=== PATIENT | male | born 1940 | race Caucasian/White ===

== ENCOUNTER 2016-12-25 14:11 | Emergency (ER) | payer MEDICARE, OTHER ==
[~2016-12-25 14:11] MED LIST: ASPIRIN81 M1 PO; BACTRIM DS TAB1 EAC2 PO; CIPRO500 M2 PO; FLOMAX0.4 M1 PO; LIPITOR40 M1 PO; MUCINEX600 M1 PO; Multivitamin; N ACETYL PO; NORCO 5-325 TA1 EACH PO; OFEV150 MG PO; OXYCODONE/APAP PO; OXYGEN; PEPCID AC20 MG PO; SINGULAIR10 M1 PO; SLEEP AID PO; STIOLTO RESPIMAT4 GM INH; Vitamin D-3; WAL-ZYR10 M1 PO; ZOFRAN4 M2 PO; [UNRECOGNIZED DRUG - OTHER] PO
[2016-12-25 16:59] LABS: URINE BILIRUBIN NEGATIVE (NEG); URINE BLOOD LARGE (NEG); URINE GLUCOSE (UA) NEGATIVE (NEG); URINE KETONE MODERATE (NEG); URINE LEUKOCYTE ESTERASE NEGATIVE (NEG); URINE NITRITE NEGATIVE (NEG); URINE PROTEIN MODERATE (NEG)
[2016-12-25 17:01] LABS: BASO % 0.3 % (0-2); EOS % 0.9 % (0-7); EOSINOPHIL ABSOLUTE COUNT 0.1 tho/cmm (0.0-0.7); HCT-HEMATOCRIT 39.3 % (36.0-53.5); HGB-HEMOGLOBIN 13.4 gm/dl (13.5-17.0); IMMATURE GRANULOCYTES ABSOLUTE 0.01 tho/cmm (0-0.03); IMMATURE GRANULOCYTES PERCENT 0.1 % (0-0.3); LYMPH % 9.8 % (20-45); LYMPH ABSOLUTE COUNT 0.7 tho/cmm (0.8-4.5); MCH (MEAN CORPUSCULAR HGB) 33.1 pg (28.0-32.0); MCHC MEAN CORPUSCULAR HGB CONC 34.1 % (32.0-36.0); MEAN PLATELET VOLUME 9.7 cmc (9.4-12.4); MONO % 11.1 % (0-12); MONOCYTE ABSOLUTE COUNT 0.8 tho/cmm (0.0-1.2); NEUTROPHIL ABSOLUTE COUNT 5.8 tho/cmm (1.6-8.0); NEUTROPHIL-AUTOMATED 5.8 tho/cmm (1.6-8.0); NEUTROPHILS % 77.8 % (40-80); PLATELET COUNT 157 tho/cmm (150-450); RED BLOOD COUNT 4.05 mil/cmm (4.40-5.70); WHITE BLOOD COUNT 7.5 tho/cmm (4.0-10.0)
[2016-12-25 17:07] LABS: URINE APPEARANCE HAZY; URINE COLOR YELLOW; URINE EPITHELIAL CELLS 0 /[HPF] (0-10); URINE RBC 50-70 /[HPF] (0-5)
[2016-12-25 17:26] LABS: ANION GAP 12 mmol/L (0-20); BLOOD UREA NITROGEN 15 mg/dl (6-24); CALCIUM 8.5 mg/dl (8.5-10.5); CARBON DIOXIDE-VENOUS 24 mmol/L (22-32); CHLORIDE 105 mmol/l (96-110); CREATININE 1.15 mg/dl (0.60-1.30); GLUCOSE 106 mg/dL (70-110); SODIUM 137 mmol/L (135-145); eGFR VALUE FOR BLACK 72 mL/Min
[2016-12-25] MEDS ORDERED: FLOMAX0.4 M1 PO (17:27)
[2016-12-25] MEDS ORDERED: ZOFRAN ODT4 MG PO (17:27)
[2016-12-25] MEDS ORDERED: NORCO 5-325 TA1 EACH PO (17:27)
[2016-12-25 17:36] LABS: POTASSIUM 4.1 mmol/L (3.7-5.1)
== END 2016-12-25 17:43 ==
LOC: EDMED 14:11
PROVIDERS: Emergency Medicine
DX: N13.2 Hydronephrosis with renal and ureteral calculous obstruction (principal); E78.5 Hyperlipidemia, unspecified; K21.9 Gastro-esophageal reflux disease without esophagitis; Z87.442 Personal history of urinary calculi; Z90.89 Acquired absence of other organs; Z79.899 Other long term (current) drug therapy
CPT/HCPCS: J1885; J2405; J7030